=== PATIENT | female | born 1955 | race Caucasian/White ===

== ENCOUNTER 2020-05-03 11:53 | Emergency (ER) | payer SELFPAY ==
[~2020-05-03] VITALS: Ht 167.6 cm; Wt 75.0 kg
--- NOTE | 2020-05-03 11:57 | PHYS DOC ---
Past History Past Medical History: Alcoholism Adult General HPI HPI Patient is a 65-year-old female who presents via EMS for acute intoxication of alcohol. Patient has a long history of this, she reports drinking at least 1/5 of vodka daily with last drink this morning. Reports after drinking earlier today, she felt the urge to drink more and wanted to make a good decision so she called EMS for transport to our ER for evaluation instead of going to local gas station to get more alcohol. Patient presents acutely intoxicated with no complaints. She is alert and oriented x3. She denies fever, recent URI symptoms, or COVID-19 contact.patient is a former visitor services assistant [facility] and after receiving IV thiamine and fluids, she left AMA. She is wanting inpatient detox at this time and amenable to placement if possible as she is afraid if discharged home, she will relapse and continue abusing alcohol Review of Systems Review of Systems Fourteen body systems of review of systems have been reviewed. See HPI for pertinent positives and negative responses, other daugherty all other systems are negative, non-pertinent or non-contributory Physical Exam Physical Exam Constitutional: Well developed, well nourished, no acute distress, non-toxic appearance. Acutely intoxicated HENT: Normocephalic, atraumatic, bilateral external ears normal, oropharynx moist, no oral exudates, nose normal. Eyes: PERRLA, EOMI, conjunctiva normal, no discharge. Neck: Normal range of motion, no tenderness, supple, no stridor. No meningeal signs Cardiovascular: Heart rate regular, sinus rhythm, no murmurs rubs or gallops Lungs & Thorax: Bilateral breath coarse bilaterally Abdomen: Bowel sounds normal, protuberant, soft, no tenderness, no masses, no pulsatile masses. Nonsurgical abdomen, no peritoneal signs Skin: Warm, dry, no erythema, no rash. Back: No tenderness, no CVA tenderness. Extremities: No tenderness, no cyanosis, no clubbing, ROM intact, no edema. Neurologic: Alert and oriented X 3, grossly normal motor & sensory function, no focal deficits noted. Psychologic: Affect normal, judgement normal, mood normal. EKG EKG [] Radiology/Procedures Radiology/Procedures PROCEDURE: CHEST AP ONLY EXAM: CHEST AP ONLY INDICATION: Reason: ETOH / Spl. Instructions: / History: . TECHNIQUE: Single view COMPARISON: None FINDINGS: The heart size is normal. The great vessels appear unremarkable. There is no hilar or mediastinal mass. The lungs show mild hypoventilatory changes most conspicuous in the medial left lung base.. There is no pleural effusion or pneumothorax. There are no significant osseous abnormalities. IMPRESSION: Mild hypoventilatory changes. Otherwise no acute findings. Electronically signed by: Taina Street MD (05/03/2020 12:48 PM) [id number] Course & Med Decision Making Course & Med Decision Making Patient seen on ER arrival via EMS ABCs grossly non-concerning Comprehensive history and physical exam obtained, subsequent diagnostic studies ordered IV access obtained, 100 mg IV thiamine and subsequent 1 L normal saline administered Patient arrived acutely intoxicated, sobered up throughout ER stay Discussed low likelihood of placement directly to inpatient rehabilitation, discussed with patient her prior attempts at getting placement for alcohol rehab and reports having [facility], [facility] and confirmed they are actively working to get her placed Patient's ER course reviewed, continues to sober up appropriately, there remains little concern for self-harm or harm to others, I feel patient is safe for discharge home with close outpatient follow-up as previously scheduled with the [facility], patient agreeable Strict return precautions were discussed at length, specifically in regards to alcohol withdrawals with good understanding by patient. All questions and concerns addressed prior to ER departure in stable condition home via [facility] Disclaimer Dragon Disclaimer This electronic medical record was generated, in whole or in part, using a voice recognition dictation system. Departure Departure: Impression: Primary Impression: Alcohol dependence with acute alcoholic intoxication without complication Disposition: 01 HOME/RESIDENCE PRIOR TO ADM Condition: STABLE Patient Instructions: Alcohol Intoxication, Alcohol Withdrawal, [id number], Alcohol and Drug Addiction, Finding Treatment Additional Instructions: As discussed prior to ER departure, please call your PCP and [facility] recapper [facility] immediately on ER departure You would benefit from PCP follow-up in upcoming 1 to 10 days time for ER follow-up Please discuss with your tire recapper your ambition for enrollment in outpatient or inpatient alcohol rehab, it appears the [facility] has an open case with you at present and currently working on finding placement Strict return precautions were discussed prior to your ER departure, if any concerning signs or symptoms of withdrawals or other complications related to your alcohol abuse arise, please call your PCP or return to our ER for medical evaluation It was a pleasure to take care of you and I hope you find the help that you seek soon! Justification of Admission: Justification of Admission: Justification of Admission Dx: N/A LEONARDO PAULINO DO May 03, 2020 11:57
[2020-05-03] MEDS ORDERED: IV NORMAL SALINE 1,000ML 1,000 ML IV ONE (12:15)
[2020-05-03] MEDS ORDERED: THIAMINE INJ 100 MG in IV NORMAL SALINE 50ML 50 ML IV ONE (12:30)
[2020-05-03 12:38] LABS: BASO # 0.1 x10^3/uL (0.0-0.2); BASO % 1 % (0-3); EOS % 0 % (0-3); HEMATOCRIT 39.2 % (36.0-47.0); HEMOGLOBIN 13.5 g/dL (12.0-15.5); LYMPH # 1.6 x10^3/uL (1.0-4.8); LYMPH % 22 % (24-48); MEAN CORPUSCULAR HEMOGLOBIN 31 pg (25-35); MEAN CORPUSCULAR HGB CONC 34 g/dL (31-37); MEAN CORPUSCULAR VOLUME 91 fL (79-100); MONO # 0.4 x10^3/uL (0.0-1.1); MONO % 6 % (0-9); NEUT # 5.1 x10^3uL (1.8-7.7); NEUT % 71 % (31-73); PLATELET COUNT 130 x10^3/uL (140-400); RED CELL DISTRIBUTION WIDTH 15.5 % (11.5-14.5); WHITE BLOOD COUNT 7.1 x10^3/uL (4.0-11.0)
[2020-05-03 12:47] LABS: CALCIUM 8.6 mg/dL (8.5-10.1); CREATININE 0.6 mg/dL (0.6-1.0); POTASSIUM 3.4 mmol/L (3.5-5.1)
--- NOTE | 2020-05-03 12:50 | RAD ---
EXAM: CHEST AP ONLY INDICATION: Reason: ETOH / Spl. Instructions: / History: . TECHNIQUE: Single view COMPARISON: None FINDINGS: The heart size is normal. The great vessels appear unremarkable. There is no hilar or mediastinal mass. The lungs show mild hypoventilatory changes most conspicuous in the medial left lung base.. There is no pleural effusion or pneumothorax. There are no significant osseous abnormalities. IMPRESSION: Mild hypoventilatory changes. Otherwise no acute findings. Electronically signed by: Taina Street MD (05/03/2020 12:48 PM) [id number]
[2020-05-03 12:53] LABS: ALBUMIN 4.2 g/dL (3.4-5.0); ALBUMIN/GLOBULIN RATIO 1.2 (1.0-1.7); TOTAL BILIRUBIN 1.9 mg/dL (0.2-1.0); TOTAL PROTEIN 7.7 g/dL (6.4-8.2)
[2020-05-03] MEDS ORDERED: NICOTINE 21MG PATCH. TD ONE (13:45)
[2020-05-03 14:17] VITALS: BP 134/46
[2020-05-03 14:23] LABS: BARBITURATES NEG (NEG); BENZODIAZEPINES NEG (NEG); CANNABINOIDS NEG (NEG); COCAINE NEG (NEG); METHADONE NEG (NEG); OPIATES NEG (NEG); PHENCYCLIDINE NEG (NEG)
[2020-05-03 14:26] LABS: AMPHETAMINE/METHAMPHETAMINE NEG (NEG)
[2020-05-03 14:51] LABS: BILIRUBIN,URINE NEG (NEG); CLARITY,URINE HAZY; COLOR,URINE STRAW; GLUCOSE,URINE NEG (NEG)
[2020-05-03 14:52] LABS: BACTERIA,URINE FEW /HPF (0-FEW); NITRITE,URINE NEG (NEG); SQUAMOUS EPITHELIAL CELL,UR FEW /LPF
== END 2020-05-03 14:30 | disposition home or self-care (01) ==
LOC: ER 11:53
DX: F10.229 Alcohol dependence with intoxication, unspecified (principal); Y90.8 Blood alcohol level of 240 mg/100 ml or more
CPT/HCPCS: 36415; 71045; 80053; 80307; 81001; 82947; 85025; 96365; 96366; 99284; G0480; J7030; 99285-25

== ENCOUNTER → 2020-08-01 | Outpatient (CLI) | payer OTHER ==
--- NOTE | 2020-08-03 16:49 | RAD ---
DATE: 08/01/2020 11:00 AM EXAM: MAMMO CAROLYNN SCREENING BILATERAL HISTORY: Screening COMPARISON: 04/08/2018 Bilateral CC and MLO views of the breasts were performed. Bilateral breast tomosynthesis was performed in CC and MLO projections. This study was interpreted with the benefit of Computerized Aided Detection (CAD). FINDINGS: Breast Density: HETERO The breast parenchyma Is heterogeneously dense, which could reduce sensitivity of mammography. Breast parenchyma level C No suspicious masses, microcalcifications or architectural distortion is present to suggest malignancy in either breast. The visualized axillae are unremarkable. IMPRESSION: No mammographic evidence of malignancy. BI-RADS CATEGORY: 1 NEGATIVE RECOMMENDED FOLLOW-UP: 12M 12 MONTH FOLLOW-UP Annual screening mammography is recommended, unless clinically indicated sooner based on symptoms or change in physical exam. PQRS compliance statement: Patient information was entered into a reminder system with a target due date for the next mammogram. Mammography is a sensitive method for finding small breast cancers, but it does not detect them all and is not a substitute for careful clinical examination. A negative mammogram does not negate a clinically suspicious finding and should not result in delay in biopsying a clinically suspicious abnormality. "Our facility is accredited by the [employer] Mammography Program."
== END ==
LOC: MAMMO 10:47
PROVIDERS: ATTEND Nurse Practitioner Family
DX: Z12.31 Encounter for screening mammogram for malignant neoplasm of breast (principal); N64.89 Other specified disorders of breast
CPT/HCPCS: 77063; 77067

== ENCOUNTER → 2021-11-13 | Outpatient (CLI) | payer OTHER ==
--- NOTE | 2021-11-13 12:45 | RAD ---
PROCEDURE: MG BILAT SCREEN+CAROLYNN HISTORY: The patient is 66 years old and is seen for Reason: SCREENING / Spl. Instructions: / Histor y: . COMPARISON: August 01, 2020 TECHNIQUE: CC and MLO views of both breasts were obtained. Images were processed by the [employer] computer-aided detection system. DENSITY: The breast parenchyma is heterogeneously dense. This may lower the sensitivity of mammograph y. FINDINGS: No developing mass, suspicious calcifications or architectural distortion. IMPRESSION: Negative. No evidence of malignancy. Recommend annual screening mammograms per [employer] guidelines. She will be due in one year. BI-RADS category 1 Negative Patient entered into a reminder system for annual screening mammogram. Electronically signed by: Andrews Mendes DO (11/13/2021 12:43 PM) [id number]
== END ==
LOC: MAMMO 08:53
PROVIDERS: ATTEND Nurse Practitioner Family
DX: Z12.31 Encounter for screening mammogram for malignant neoplasm of breast (principal)
CPT/HCPCS: 77063; 77067